=== PATIENT | male | born 2000 | race Caucasian/White ===

== ENCOUNTER 2019-09-05 12:58 | Emergency (ER) | payer MEDICAID ==
[~2019-09-05] VITALS: Ht 182.9 cm; Wt 97.5 kg
[~2019-09-05 12:58] MED LIST: BACTRIM DS1 TAB PO; IBU600 M2 PO
[2019-09-05 13:09] VITALS: Ht 182.9 cm; Wt 97.5 kg
[2019-09-05 14:42] LABS: CALCIUM 7.9 mg/dL (8.5-10.1); CARBON DIOXIDE 19.5 mmol/L (21-32); CHLORIDE SERUM 105 mmol/L (98-107); CREATININE SERUM 1.3 mg/dL (0.7-1.3); GFR1 > 60 mL/min; GLUCOSE SERUM 92 mg/dL (74-106); POTASSIUM SERUM 3.5 mmol/L (3.5-5.1); SODIUM SERUM 138 mmol/L (136-145)
[2019-09-05 14:43] LABS: RED CELL DISTRIBUTION WIDTH 12.2 % (11.5-14.5)
[2019-09-05 14:46] LABS: PLATELET COUNT 415 x10^3mcL (130-400)
[2019-09-05 14:47] LABS: ALBUMIN 3.4 g/dL (3.4-5.0); ALKALINE PHOSPHATASE 66 U/L (46-116); ALT/SGPT 86 U/L (16-63); AST/SGOT 32 U/L (15-37); BILIRUBIN TOTAL 0.3 mg/dL (0.20-1.00); TOTAL PROTEIN, SERUM 6.8 g/dL (6.4-8.2)
[2019-09-05 19:51] VITALS: BP 132/73
== END 2019-09-05 19:51 | disposition home or self-care (01) ==
LOC: ED 12:58
PROVIDERS: Emergency Medicine
DX: L76.22 Postprocedural hemorrhage of skin and subcutaneous tissue following other procedure (principal)
CPT/HCPCS: J1170; J3490